=== PATIENT | female | born 1950 | race Caucasian/White ===

== ENCOUNTER → 2021-03-07 | Outpatient (CLI) | payer MEDICARE ==
[~2021-03-07] MED LIST: ACIPHEX20 MG PO; ASPIRIN CHEWABL81 MG PO; BIOTIN800 MCG PO; BUSPAR 5MG TABLE5 MG PO; CALCIUM 600 +1 EAC4 PO; CLONAZEPAM1 MG PO; COLESTID1 GM PO; COREG 25MG TAB25 MG PO; ESSENTIAL DAIL1 EACH PO; GLUCOPHAGE1000 MG PO; LIPITOR TAB 2020 MG PO; LISINOPRIL20 MG PO; NORVASC 5 MG TAB5 MG PO; RANITIDINE HCL300 M1 PO; RESTORIL15 MG PO; ROBAXIN500 MG PO; TRAMADOL HCL50 MG PO; VITAMIN D250000 UNIT PO; VITAMIN E400 UNI2 PO; XYZAL5 MG PO
== END ==
LOC: NM 09:24
DX: I20.9 Angina pectoris, unspecified (principal)
CPT/HCPCS: 78452; 93017; A9502; J2785

== ENCOUNTER → 2021-04-18 | Outpatient (CLI) | payer MEDICARE | LOC: EXRD 10:59 | DX: M50.122 Cervical disc disorder at C5-C6 level with radiculopathy (principal); M51.16 Intervertebral disc disorders with radiculopathy, lumbar region; M25.562 Pain in left knee; R51.9 Headache, unspecified; R07.9 Chest pain, unspecified; Z91.81 History of falling | CPT/HCPCS: 71046; 72040; 72100; 73560 ==

== ENCOUNTER → 2021-05-20 | Outpatient (CLI) | payer MEDICARE | LOC: KOH-I 15:30 | DX: R51.9 Headache, unspecified (principal); M25.78 Osteophyte, vertebrae; M50.31 Other cervical disc degeneration, high cervical region; M48.02 Spinal stenosis, cervical region; M47.812 Spondylosis without myelopathy or radiculopathy, cervical region | CPT/HCPCS: 70450; 72141 ==

== ENCOUNTER → 2021-11-29 | Outpatient (CLI) | payer MEDICARE ==
[~2021-11-29] VITALS: Ht 162.6 cm; Wt 77.1 kg
== END ==
LOC: OPSV 13:32
DX: A49.9 Bacterial infection, unspecified (principal); N39.0 Urinary tract infection, site not specified
CPT/HCPCS: 96360; 96365; J1335

== ENCOUNTER → 2021-11-30 | Outpatient (CLI) | payer MEDICARE | LOC: OPSV 13:59 | DX: A49.9 Bacterial infection, unspecified (principal); N39.0 Urinary tract infection, site not specified | CPT/HCPCS: 96365; J1335 ==

== ENCOUNTER → 2021-12-01 | Outpatient (CLI) | payer MEDICARE ==
[~2021-12-01] VITALS: Ht 162.6 cm; Wt 77.1 kg
== END ==
LOC: OPSV 11:41
DX: A49.9 Bacterial infection, unspecified (principal); N39.0 Urinary tract infection, site not specified
CPT/HCPCS: 96360; 96365; J1335

== ENCOUNTER → 2021-12-02 | Outpatient (CLI) | payer MEDICARE ==
[~2021-12-02] VITALS: Ht 162.6 cm; Wt 77.1 kg
== END ==
LOC: OPSV 13:02
DX: A49.9 Bacterial infection, unspecified (principal); N39.0 Urinary tract infection, site not specified
CPT/HCPCS: 96365; J1335

== ENCOUNTER → 2021-12-03 | Outpatient (CLI) | payer MEDICARE | LOC: OPSV 06:39 | DX: A49.9 Bacterial infection, unspecified (principal); N39.0 Urinary tract infection, site not specified | CPT/HCPCS: 96372; J1335 ==

== ENCOUNTER → 2021-12-04 | Outpatient (CLI) | payer MEDICARE | LOC: OPSV 06:50 | DX: A49.9 Bacterial infection, unspecified (principal); N39.0 Urinary tract infection, site not specified | CPT/HCPCS: 96372; J1335 ==

== ENCOUNTER → 2021-12-05 | Outpatient (CLI) | payer MEDICARE | LOC: OPSV 10:23 | DX: A49.9 Bacterial infection, unspecified (principal); N39.0 Urinary tract infection, site not specified | CPT/HCPCS: 96372; J1335 ==

== ENCOUNTER → 2022-01-09 | Outpatient (CLI) | payer MEDICARE | LOC: LBRF 16:01 | DX: M54.9 Dorsalgia, unspecified (principal); R31.9 Hematuria, unspecified | CPT/HCPCS: 87086 ==

== ENCOUNTER → 2022-01-10 | Outpatient (CLI) | payer MEDICARE | LOC: CT 07:11 | DX: R10.9 Unspecified abdominal pain (principal); R31.9 Hematuria, unspecified; R93.7 Abnormal findings on diagnostic imaging of other parts of musculoskeletal system; N32.89 Other specified disorders of bladder | CPT/HCPCS: 36415; 82565; 84520; Q9967 ==

== ENCOUNTER → 2022-03-21 | Outpatient (CLI) | payer MEDICARE ==
[2022-03-21 11:36] LABS: HEMOGLOBIN 13.1 gm/dl (12.3-15.3); RED BLOOD COUNT 4.45 M/UL (4.00-5.10); WHITE BLOOD COUNT 6.4 K/UL (4.5-11.0)
[2022-03-21 12:01] LABS: BUN/CREATININE RATIO 25 (0-10)
[2022-03-22 10:18] LABS: CREATININE, URINE 93.2 mg/dL (Not Estab.)
== END ==
LOC: LAB 11:02
PROVIDERS: Nurse Practitioner Family
DX: Z00.00 Encounter for general adult medical examination without abnormal findings (principal); R79.89 Other specified abnormal findings of blood chemistry; K21.9 Gastro-esophageal reflux disease without esophagitis; R10.9 Unspecified abdominal pain; M54.9 Dorsalgia, unspecified; G89.29 Other chronic pain; E11.22 Type 2 diabetes mellitus with diabetic chronic kidney disease; N18.30 Chronic kidney disease, stage 3 unspecified; E78.5 Hyperlipidemia, unspecified; F41.8 Other specified anxiety disorders; E53.8 Deficiency of other specified B group vitamins; G56.00 Carpal tunnel syndrome, unspecified upper limb; E55.9 Vitamin D deficiency, unspecified; R53.83 Other fatigue; Z79.899 Other long term (current) drug therapy
CPT/HCPCS: 36415; 80053; 80061; 81001; 82043; 82570; 82607; 83036; 84439; 84443; 85025

== ENCOUNTER → 2022-05-05 | Outpatient (CLI) | payer MEDICARE | LOC: EXRD 11:18 | DX: R06.02 Shortness of breath (principal); M25.552 Pain in left hip; M25.551 Pain in right hip; M47.26 Other spondylosis with radiculopathy, lumbar region; M47.22 Other spondylosis with radiculopathy, cervical region | CPT/HCPCS: 71046; 72040; 72100; 73522 ==

== ENCOUNTER → 2022-05-29 | Outpatient (CLI) | payer MEDICARE | LOC: KOH-I 08:15 | DX: M51.16 Intervertebral disc disorders with radiculopathy, lumbar region (principal); M48.02 Spinal stenosis, cervical region | CPT/HCPCS: 72141; 72148 ==

== ENCOUNTER → 2022-07-07 | Outpatient (CLI) | payer MEDICARE ==
[2022-07-07 15:47] LABS: HEMOGLOBIN 12.9 gm/dl (12.3-15.3); RED BLOOD COUNT 4.29 M/UL (4.00-5.10); WHITE BLOOD COUNT 6.2 K/UL (4.5-11.0)
[2022-07-07 16:07] LABS: BUN/CREATININE RATIO 24 (0-10)
[2022-07-08 10:12] LABS: CREATININE, URINE 97.6 mg/dL (Not Estab.)
== END ==
LOC: LAB 14:19
PROVIDERS: Nurse Practitioner Family
DX: Z00.00 Encounter for general adult medical examination without abnormal findings (principal); E11.9 Type 2 diabetes mellitus without complications; R10.9 Unspecified abdominal pain; K52.9 Noninfective gastroenteritis and colitis, unspecified; K21.9 Gastro-esophageal reflux disease without esophagitis; G89.29 Other chronic pain; E78.5 Hyperlipidemia, unspecified; E87.5 Hyperkalemia; I10 Essential (primary) hypertension; R07.9 Chest pain, unspecified; R79.89 Other specified abnormal findings of blood chemistry; G56.00 Carpal tunnel syndrome, unspecified upper limb; F41.8 Other specified anxiety disorders; R53.83 Other fatigue; E53.8 Deficiency of other specified B group vitamins; E55.9 Vitamin D deficiency, unspecified; N39.0 Urinary tract infection, site not specified
CPT/HCPCS: 36415; 80053; 80061; 81001; 82043; 82570; 82607; 83036; 84439; 84443; 85025

== ENCOUNTER → 2022-08-03 | Outpatient (CLI) | payer MEDICARE | LOC: NM 10:51 | DX: R60.0 Localized edema (principal); R68.89 Other general symptoms and signs; R07.9 Chest pain, unspecified; R13.10 Dysphagia, unspecified; E04.2 Nontoxic multinodular goiter | CPT/HCPCS: ECHO; 76536; 78452; 93017; 93306; A9502; J2785 ==